=== PATIENT | male | born 1985 | race Caucasian/White ===

== ENCOUNTER 2018-04-15 10:41 | Emergency (ER) | payer OTHER ==
[~2018-04-15] VITALS: Ht 177.8 cm; Wt 83.9 kg
--- NOTE | 2018-04-15 10:45 | NUR ---
BIB [facility] for OTB, pt complaints of heroin withdrawal. A/OX 4, breathing even and unlabored. no sob, nad, vitals stable. safety and comfort measures in place. awaiting md orders.
[2018-04-15] MEDS ORDERED: CHLORDIAZEPOXIDE HCL 25 MG CAPSULE ONE (10:58)
[2018-04-15] MEDS ORDERED: LOPERAMIDE HCL (2 MG CAP) 2 MG CAPSULE PO ONE ×2 (10:58→11:00)
[2018-04-15] MEDS ORDERED: CHLORDIAZEPOXIDE HCL 25 MG CAPSULE PO ONE (11:00)
--- NOTE | 2018-04-15 11:02 | NUR ---
medicated patient per md orders.
[2018-04-15 11:17] VITALS: BP 113/60
--- NOTE | 2018-04-15 11:17 | NUR ---
Patient discharged in custody with [facility] in stable condition. Written and verbal after care instructions given. Patient verbalizes understanding of instruction.
== END 2018-04-15 11:17 ==
LOC: ER 10:44
DX: F10.10 Alcohol abuse, uncomplicated (principal); F11.10 Opioid abuse, uncomplicated; R19.7 Diarrhea, unspecified; Y90.9 Presence of alcohol in blood, level not specified
CPT/HCPCS: A4606; Z7610

== ENCOUNTER 2018-09-03 09:32 | Emergency (ER) | payer OTHER ==
[~2018-09-03] VITALS: Ht 180.3 cm; Wt 84.8 kg
--- NOTE | 2018-09-03 09:32 | NUR ---
PT BIB [facility] TO ER BED 12. C/O CHILLS, NAUSEA AND VOMITING WORST TODAY FOR POSSIBLE ALCOHOL WIDRAWAL. PT STATES LAST ALCOHOL CONSUMPTION X 2 DAYS AGO. PLACED ON MONITOR. STABLE VITALS. AWAITING MD BERGMAN.
--- NOTE | 2018-09-03 09:57 | NUR ---
DR HOANG AT BEDSIDE FOR EVAL.
[2018-09-03] MEDS ORDERED: FOLIC ACID 1 MG TABLET PO ONE (10:00)
[2018-09-03] MEDS ORDERED: THIAMINE HCL 100 MG TABLET PO ONE (10:00)
[2018-09-03] MEDS ORDERED: LORAZEPAM INJ 2 MG/ML VIAL IVP ONE (10:00)
[2018-09-03] MEDS ORDERED: IV NS 0.9% 1,000 ML BAG IV ONE (10:00)
[2018-09-03] MEDS ORDERED: ONDANSETRON HCL/PF 4 MG/2 ML VIAL IVP ONE (10:00)
[2018-09-03] MEDS ORDERED: LORAZEPAM INJ 2 MG/ML VIAL ONE (10:02)
[2018-09-03] MEDS ORDERED: THIAMINE HCL 100 MG TABLET ONE (10:04)
[2018-09-03] MEDS ORDERED: ONDANSETRON HCL/PF 4 MG/2 ML VIAL ONE (10:04)
[2018-09-03] MEDS ORDERED: FOLIC ACID 1 MG TABLET ONE (10:04)
--- NOTE | 2018-09-03 10:50 | NUR ---
PT STILL UNABLE TO PROVIDE URINE SAMPLE AT THIS TIME. URINAL PROVIDED.
--- NOTE | 2018-09-03 11:02 | NUR ---
URINE SPECIMEN COLLECTED AND SENT TO LAB.
[2018-09-03 11:08] LABS: APPEARANCE,URINE Clear (CLEAR); BILIRUBIN,URINE SMALL (NEGATIVE); BLOOD, URINE Negative Ery/uL (NEGATIVE); COLOR,URINE Yellow (YELLOW); KETONES,URINE 80 (NEGATIVE); LEUKOCYTE ESTERASE ,URINE Negative (NEGATIVE); NITRITE, URINE Negative (NEGATIVE); PH,URINE 6.5 (5.0-8.0); PROTEIN,URINE Negative (NEGATIVE); UGLUCOSE Negative (NEGATIVE); UROBILINOGEN,URINE 0.2 EU/dL (0.2)
[2018-09-03 11:18] LABS: BACTERIA,URINE None seen /HPF (None Seen); RBC,URINE 0-2 /HPF (0-2); SQUAMOUS EPITHELIAL CELL,UR Few /HPF (None Seen); WBC,URINE 0-3 /HPF (0-3)
--- NOTE | 2018-09-03 11:35 | NUR ---
PT RESTING IN BED. STABLE VITALS. WILL CONTINUE TO MONITOR.
[2018-09-03 12:13] LABS: BASOPHILS % (AUTO) 0.4 % (0.0-2.0); EOSINOPHILS % (AUTO) 0.6 % (0.0-6.0); HEMATOCRIT 45 % (39-51); HEMOGLOBIN 15.9 g/dL (13.5-17.5); LYMPHOCYTES # (AUTO) 2.1 /CMM (0.8-4.8); LYMPHOCYTES % (AUTO) 22.2 % (20.0-44.0); MEAN CORPUSCULAR HGB CONC 36 g/dl (31.0-36.0); MEAN CORPUSCULAR VOLUME 89 fL (80-96); MONOCYTES # (AUTO) 0.9 /CMM (0.1-1.30); MONOCYTES % (AUTO) 9.7 % (2.0-12.0); NEUTROPHILS # (AUTO) 6.4 /CMM (1.8-8.9); NEUTROPHILS % (AUTO) 67.1 % (43.0-81.0); PLATELET COUNT (AUTO) 265 /CMM (150-450); RED BLOOD CELL COUNT(AUTO) 5.02 MIL/uL (4.5-6.0); WHITE BLOOD COUNT (AUTO) 9.5 K/uL (4.3-11.0)
[2018-09-03 12:26] LABS: ACETAMINOPHEN 0 ug/ml (10-30); ALANINE AMINOTRANSFERASE 67 U/L (12-78); ALBUMIN 3.4 g/dL (3.4-5.0); ALCOHOL, BLOOD < 3 mg/dL (0-0); ALKALINE PHOSPHATASE 64 U/L (46-116); ASPARTATE AMINOTRANSFERASE 35 U/L (15-37); BILIRUBIN,DIRECT 0.1 mg/dL (0.0-0.2); BILIRUBIN,TOTAL 0.6 mg/dL (0.2-1.0); CALCIUM, SERUM 8.4 mg/dL (8.5-10.1); CARBON DIOXIDE 25 mmol/L (21-32); CHLORIDE 106 mmol/L (98-107); CREATININE 0.8 mg/dL (0.6-1.3); GLUCOSE 100 mg/dL (74-106); POTASSIUM 3.5 mmol/L (3.5-5.1); SALICYLATE 2.1 mg/dL (2.8-20.0); SODIUM SERUM 142 mmol/L (136-145); TOTAL PROTEIN, SERUM 6.8 g/dL (6.4-8.2); UREA NITROGEN, BLOOD 9 mg/dL (7-18)
--- NOTE | 2018-09-03 13:50 | NUR ---
PICC line removed. Catheter intact and site benign. Pressure and 4x4 applied to site. No bleeding noted. Patient discharged to home in stable condition. Written and verbal after care instructions given. Patient verbalizes understanding of instruction.
[2018-09-03 13:52] VITALS: BP 126/79
== END 2018-09-03 13:53 ==
LOC: ER 09:35
DX: F19.939 Other psychoactive substance use, unspecified with withdrawal, unspecified (principal); F11.10 Opioid abuse, uncomplicated; F15.10 Other stimulant abuse, uncomplicated; F13.20 Sedative, hypnotic or anxiolytic dependence, uncomplicated; F14.10 Cocaine abuse, uncomplicated; F10.129 Alcohol abuse with intoxication, unspecified; R10.9 Unspecified abdominal pain; R11.0 Nausea; F17.200 Nicotine dependence, unspecified, uncomplicated
CPT/HCPCS: 36415; 36569; 80048; 80076; 80305; 80329; 81001; 85025; 96372 ×2; 99285; A4606; G0480 ×2; J2060; J2405; J7030; Z7610; 81000-TC